=== PATIENT | male | born 1985 | race Caucasian/White ===

== ENCOUNTER 2016-11-13 09:23 | Emergency (ER) | payer OTHER, MEDICAID ==
[2016-11-13 09:38] VITALS: RESP 16; TEMP 98.1
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
[2016-11-13 10:40] LABS: % IMMATURE GRANULYOCYTES 0.3 % (0.0-1.1); ABSOLUTE IMMATURE GRANULOCYTES 0.02 10^3/uL (0.00-0.10); ADD DIFF? NO; ADD MORPH? NO; ADD SCAN? NO; ATYPICAL LYMPHOCYTE FLAG 10 (0-99); FRAGMENT RBC FLAG 10 (0-99); HEMATOCRIT 39.6 % (40.0-51.0); HEMOGLOBIN 13.6 g/dL (13.7-17.5); LEFT SHIFT FLG 0 (0-99); LIPEMIA HEMOLYSIS FLAG 90 (0-99); MEAN CELL HEMOGLOBIN 31.1 pg (27.9-34.1); MEAN CELL HEMOGLOBIN CONCENTR. 34.3 g/dL (32.4-36.7); MEAN CELL VOLUME 90.6 fL (81.5-99.8); MEAN PLATELET VOLUME 9.6 fL (8.7-11.7); PLATELET CLUMPS FLAG 0 (0-99); PLATELET COUNT 262 10^3/uL (150-400); RED BLOOD CELL COUNT 4.37 10^6/uL (4.40-6.38); RED CELL DISTRIBUTION WIDTH 12.2 % (11.5-15.2)
[2016-11-13] MEDS ORDERED: IOPAMIDOL (ISOVUE-300) 100 ML BTL ONE (10:54)
[2016-11-13 12:06] VITALS: BP 130/98; PULSE 55; O2SAT 96
== END 2016-11-13 12:30 | disposition home or self-care (01) ==
DX: S22.41XA Multiple fractures of ribs, right side, initial encounter for closed fracture (principal); Z87.891 Personal history of nicotine dependence; V49.49XA Driver injured in collision with other motor vehicles in traffic accident, initial encounter; Y92.410 Unspecified street and highway as the place of occurrence of the external cause; Y99.8 Other external cause status; Y93.89 Activity, other specified
CPT/HCPCS: 82947-QW; Q9967

== ENCOUNTER 2017-03-08 22:24 | Emergency (ER) | payer MEDICAID, OTHER ==
[2017-03-08 22:29] VITALS: BP 134/85; PULSE 78; RESP 18; TEMP 98.2; O2SAT 95
--- NOTE | 2017-03-08 22:29 | EDPHY ---
H & P Time Seen by Provider: 03/08/17 22:28 HPI/ROS: HPI: This is a 31-year-old male who presents with Chief Complaint: Left pinky laceration Location: Left 5th digit Quality: Laceration Duration: 45 min prior to arrival Signs and Symptoms: + bleeding, no radiation, no numbness, no weakness, no tingling, no incontinence, no decreased range of motion, no swelling, no pain Timing: Sudden Severity: Mild Context: Patient is left hand dominant, washing a cold green glass in the sink , was girlfriend was making dinner, when he accidentally dropped the glass and went to cloth picker the edge sustaining a cut to his left dorsal aspect of his pinky finger. He felt immediate pain and started to bleed. He applied direct pressure which stop the bleeding and then ran under cold water. Last tetanus booster was in 2011. Denies any paresthesias/decreased range of motion/skin color changes. Modifying Factors: Direct pressure, transient relief Comment: ROS: see HPI Constitutional: No fever, no chills, no weight loss Eyes: No blurred vision Respiratory: No shortness of breath, no cough Cardiovascular: No chest pain Gastrointestinal: No nausea, no vomiting no diarrhea Genitourinary: No dysuria Extremities: No myalgias Neurologic: No weakness, no numbness Skin: No rashes Hematologic: No bruising, no bleeding MEDICAL/SURGICAL/SOCIAL HISTORY: Medical history: Generally healthy. Does not take any regular medications. Surgical history: Right knee surgery/oral surgery Social history: Employed. CONSTITUTIONAL: Pleasant adult male, awake and alert, no obvious distress HEENT: Atraumatic and normocephalic, PERRL, EOMI. Tympanic membranes clear. Oropharynx clear, no exudate and moist pink mucosa. Airway patent. No lymphadenopathy. No meningismus. Cardiovascular: Normal S1/S2, regular rate, regular rhythm, without murmur rub or gallop. PULMONARY/CHEST: Symmetrical and nontender. Clear to auscultation bilaterally. Good air movement. No accessory muscle usage. ABDOMEN: Soft, nondistended, nontender, no rebound, no guarding, no peritoneal signs, no masses or organomegaly. No CVAT. EXTREMITIES: 2/2 radial pulses, retail and promotions coordinator strength 5/5, left 5th digit 2.5 cm superficial, simple laceration between the MCP and PIP joints. MCP/PIP/DIP flexion/extension/light touch sensation intact. no deformities, no clubbing, no cyanosis or edema. NEUROLOGICAL: no focal neuro deficits. GCS 15. SKIN: Warm and dry, no erythema. no rash. Good capillary refill. Source: Patient Exam Limitations: No limitations - Medical/Surgical History Hx Asthma: No Hx Chronic Respiratory Disease: No Hx Diabetes: No Hx Cardiac Disease: No Hx Renal Disease: No Hx Cirrhosis: No Hx Alcoholism: No Hx HIV/AIDS: No Hx Splenectomy or Spleen Trauma: No Other PMH: r knee surgery/oral surgery - Social History Smoking Status: Former smoker Constitutional: Initial Vital Signs Temperature (C) 36.8 C 03/08/17 22:27 Heart Rate 78 03/08/17 22:27 Respiratory Rate 18 03/08/17 22:27 Blood Pressure 134/85 H 03/08/17 22:27 O2 Sat (%) 95 03/08/17 22:27 O2 Delivery Mode Room Air Allergies/Adverse Reactions: No Known Allergies Allergy (Verified 03/08/17 22:29) Home Medications: Medication Instructions Recorded NK [No Known Home Meds] 11/13/16 Medical Decision Making Procedures: Procedure: Laceration repair. Verbal consent was obtained from the patient. The left 5th digit 2.5 cm superficial, simple laceration between the MCP and PIP joints. was anesthetized in the usual fashion with a digital block using 4 mL of bupivacaine . The wound was irrigated, draped and explored to its base with a gloved finger. There were no deep structures involved. No tendon injury was identified. The wound was repaired with #8, 6-0 Prolene in a simple interrupted pattern. Good hemostasis was achieved and patient tolerated procedure well. The procedure was performed by myself. Procedure: Splint placement. A left finger splint was applied emergency Room agricultural technician. After application of the splint I returned and re-examined the patient. The splint was adequately immobilizing the joint and distal to the splint the patient's circulation and sensation was intact. ED Course/Re-evaluation: Wound Care and laceration repair Tetanus booster up-to-date No signs of neurovascular compromise/tenting of skin/compartment syndrome/ extremities and joints examined above and below area of concern and are neurovascularly intact/tendon injury. Laceration repaired with 8 nonabsorbable sutures Xeroform, clean sterile dressing, finger splint applied This patient was seen under the supervision of my secondary supervising physician. I evaluated care for this patient independently. Discussed this patient with Dr. Lomas who did not see the patient. Patient's presentation, labs/imaging, treatment and plan of care were discussed with secondary supervising physician. Differential Diagnosis: Differential diagnosis includes but is limited to nerve injury, tendon injury, foreign body, laceration, nail involvement. Departure - Departure Disposition: Home, Routine, Self-Care Clinical Impression: Laceration of left little finger w/o foreign body w/o damage to nail Qualifiers: Encounter type: initial encounter Qualified Code(s): S61.217A - Laceration without foreign body of left little finger without damage to nail, initial encounter Condition: Good Instructions: Care For Your Stitches (ED), Finger Laceration (ED) Additional Instructions: Keep the splint and dressing dry and in place for 48 hours. After 48 hours, you may remove the dressing; wash the site daily with mild soap and water; then pat dry. Take Tylenol 650 mg every 4 hours and/or Ibuprofen 600 mg every 8 hours with food as needed for pain. Please return to the emergency room in 10 days to have your sutures removed. Please monitor for signs and symptoms of infection. Referrals: [facility],. [Clinic] - As per Instructions
== END 2017-03-08 23:23 | disposition home or self-care (01) ==
PROC: 0HQGXZZ Repair Left Hand Skin, External Approach (ICD-10-PCS; principal; 2017-03-08)
DX: S61.217A Laceration without foreign body of left little finger without damage to nail, initial encounter (principal); Z87.891 Personal history of nicotine dependence; W25.XXXA Contact with sharp glass, initial encounter; Y93.G1 Activity, food preparation and clean up
CPT/HCPCS: L3925